=== PATIENT | female | born 2000 ===

== ENCOUNTER 2020-02-03 20:05 | Inpatient (IN) ==
[2020-02-03 20:50] LABS: Apearance,Urine CLEAR (Clear); Bacteria,Urine Occasional /HPF (Few); Bilirubin,Urine Negative (Negative); Blood, Urine Negative (Negative); Glucose,Urine (UA) Negative (Negative); Ketones,Urine Negative (Negative); Mucus,Urine Occasional /LPF (Occasional); Nitrite,Urine Negative (Negative); Protein,Urine Negative; RBC,Urine 5 /HPF (0-4); Squamous Epithelial Cell,Urine Occasional /HPF (0-10); Urine Color Yellow (Yellow); Urine Specific Gravity 1.012 (1.001-1.035); Urine Urobilinogen < 2.0 EU/DL (0.2-1.0); WBC,Urine 5 /HPF (0-6)
[2020-02-03] MEDS ORDERED: MEPERIDINE 50 MG/1 ML VIAL IV PRN (22:21)
[2020-02-03] MEDS ORDERED: OXYTOCIN/LR 20 UNIT/1,000 ML BAG IV SCH (22:30)
[2020-02-03 22:46] LABS: Basophils % 0.2 % (0.0-0.8); Eosinophils # 0.1 10*3/uL (0.0-0.87); Eosinophils % 1.2 % (0.00-10.9); Hematocrit 31.1 VOL% (35.7-47.0); Hemoglobin 9.7 GM/DL (12.0-16.0); Immature Granulocytes % 1.4 %; Immature Granulocytes Absolute 0.17 #; Lymphocytes # 2.6 10*3/uL (1.4-4.0); Lymphocytes % 21.8 % (21.3-54.2); Mean Corpuscular HGB Conc 31.2 GM/DL (32-36); Mean Corpuscular Volume 77.8 FL (87-102); Mean Platelet Volume 12.6 FL (9.6-12.0); Monocytes % 9.2 % (1.7-12.7); Neutrophils % 66.2 % (38.7-73.9); Platelet Count 215 T/CUMM (130-400); Red Cell Distribution Width 15.9 % (9.3-17.3); White Blood Count 12.1 T/CUMM (4-12)
[2020-02-03] MEDS: LACTATED RINGERS 1,000 ML IV SCH (23:01)
[2020-02-04] MEDS: BUTORPHANOL 2 MG/ML VIAL IV PRN ×2 (00:03→05:57)
[2020-02-04] MEDS: ONDANSETRON 4 MG/2 ML VIAL IV PRN ×2 (00:04→05:57)
[2020-02-04] MEDS ORDERED: AMPICILLIN INJ 2,000 MG in SODIUM CHLORIDE 0.9% 100 ML IV ONE (03:30)
[2020-02-04] MEDS: LACTATED RINGERS 1,000 ML IV SCH (07:13)
[2020-02-04] MEDS ORDERED: miSOPROStoL 200 MCG TABLET ONE (07:23)
[2020-02-04] MEDS ORDERED: OXYTOCIN/LR 20 UNIT/1,000 ML BAG IV ONE (07:23)
[2020-02-04] MEDS ORDERED: METHYLERGONOVINE 0.2 MG/1 ML AMP ONE (07:23)
[2020-02-04] MEDS ORDERED: TRANEXAMIC ACID 1,000 MG/10 ML VIAL ONE (07:23)
[2020-02-04] MEDS ORDERED: CARBOPROST TROMETHAMINE 250 MCG/ML AMP IM ONE (07:24)
[2020-02-04] MEDS ORDERED: SODIUM CHLORIDE 0.9% 0 ML IV ONE (07:26)
[2020-02-04] MEDS ORDERED: LIDOCAINE 1% 50 ML VIAL ONE (07:26)
[2020-02-04] MEDS ORDERED: AMPICILLIN INJ 1,000 MG in SODIUM CHLORIDE 0.9% 100 ML IV SCH (07:30)
[2020-02-04 11:31] LABS: HIV Antigen/Antibody Result Nonreactive (Nonreactive); Hepatitis B Surface Ag Quant < 0.10 Index; Hepatitis B Surface Ag Result Negative (Negative)
[2020-02-04] MEDS ORDERED: HYDROCORTISONE 2.5% RECTAL CREAM 30 GM TUBE TOP PRN (12:07)
[2020-02-04] MEDS ORDERED: BENZOCAINE 20%/MENTHOL 0.5% SPRAY 56 GM CAN TOP PRN (12:07)
[2020-02-04] MEDS ORDERED: LANOLIN 50% CREAM 0.3 OZ TUBE TOP PRN (12:07)
[2020-02-04] MEDS ORDERED: RHO(D) IMMUNE GLOBULIN 300 MCG SYRINGE IM ONE (12:07)
[2020-02-04] MEDS ORDERED: WITCH HAZEL PADS 100/JAR TOP PRN (12:07)
[2020-02-04] MEDS ORDERED: BISACODYL 10 MG SUPP RECTAL PRN (12:07)
[2020-02-04] MEDS ORDERED: MEASLES/MUMPS/RUBELLA VACCINE 0.5 ML VIAL SUBCUT ONE (12:07)
[2020-02-04] MEDS ORDERED: ACETAMINOPHEN 325 MG TABLET PO PRN (12:07)
[2020-02-04] MEDS ORDERED: DIPH/TET/ACEL PERT BOOSTER VACCINE 0.5 ML VIAL IM ONE (12:07)
[2020-02-04] MEDS ORDERED: oxyCODONE/ACETAMINOPHEN 5-325 MG TABLET PO PRN ×2 (12:07)
[2020-02-04] MEDS: IBUPROFEN 800 MG TABLET PO PRN ×2 (12:17→19:17)
[2020-02-04] MEDS: DOCUSATE SODIUM 100 MG CAPSULE PO SCH ×2 (19:18→20:57)
[2020-02-05] MEDS: IBUPROFEN 800 MG TABLET PO PRN (01:06)
[2020-02-05 07:03] LABS: Basophils % 0.2 % (0.0-0.8); Eosinophils # 0.3 10*3/uL (0.0-0.87); Eosinophils % 2.5 % (0.00-10.9); Hematocrit 29.8 VOL% (35.7-47.0); Hemoglobin 9.1 GM/DL (12.0-16.0); Immature Granulocytes % 0.8 %; Immature Granulocytes Absolute 0.11 #; Lymphocytes # 3.3 10*3/uL (1.4-4.0); Lymphocytes % 25.5 % (21.3-54.2); Mean Corpuscular HGB Conc 30.5 GM/DL (32-36); Mean Corpuscular Volume 78.4 FL (87-102); Mean Platelet Volume 13.4 FL (9.6-12.0); Monocytes % 10.1 % (1.7-12.7); Neutrophils % 60.9 % (38.7-73.9); Platelet Count 217 T/CUMM (130-400); Red Cell Distribution Width 16.1 % (9.3-17.3)
[2020-02-05 07:42] LABS: Hypochromasia 1+; Microcytosis 1+; Platelet Estimate Adequate
[2020-02-05] MEDS: DOCUSATE SODIUM 100 MG CAPSULE PO SCH (09:05)
[2020-02-05 11:54] VITALS: BP 113/67
== END 2020-02-05 16:05 | disposition home or self-care (01) | DRG 807 ==
LOC: N.LDOUT 20:05 → N.LD 20:10 → N.OB 02-04 09:35
PROVIDERS: ADMIT Obstetrics & Gynecology; ATTEND Obstetrics & Gynecology